=== PATIENT | female | born 1950 | race Caucasian/White ===

== ENCOUNTER 2016-12-02 23:39 | Emergency (ER) | payer BC ==
[2016-12-02 23:49] VITALS: BP 143/61
[2016-12-02] MEDS ORDERED: Diphtheria,Pertussis(Acell),Tetanus Vaccine 0.5 ML SDV IM ONE (23:54)
[2016-12-02] MEDS ORDERED: Clindamycin HCl 150 MG Cap PO ONE (23:54)
[2016-12-02] MEDS ORDERED: Silver Sulfadiazine 1% Crm 50 GM Tube TOP ONE (23:54)
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
== END 2016-12-03 00:12 | disposition home or self-care (01) ==
LOC: DL.ED 23:39
DX: T23.172A Burn of first degree of left wrist, initial encounter (principal); E78.00 Pure hypercholesterolemia, unspecified; Z87.891 Personal history of nicotine dependence; Z79.899 Other long term (current) drug therapy; Z23 Encounter for immunization; X15.3XXA Contact with hot saucepan or skillet, initial encounter
CPT/HCPCS: 16000; 90471; 90715; 99283; A9270

== ENCOUNTER 2024-11-24 07:21 | Day surgery (SDC) | payer MEDICARE, OTHER ==
[2024-11-24] MEDS: Lactated Ringers 1,000 ML IV SCH (07:53)
[2024-11-24] MEDS ORDERED: Propofol 200 MG/20 ML SDV ONE (10:18)
[2024-11-24 11:04] VITALS: BP 141/45; PULSE 66
== END 2024-11-24 11:06 | disposition home or self-care (01) ==
LOC: DL.ENDO 07:21
PROVIDERS: ATTEND Internal Medicine Gastroenterology
DX: Z12.11 Encounter for screening for malignant neoplasm of colon (principal); Z88.8 Allergy status to other drugs, medicaments and biological substances
CPT/HCPCS: G0121; J7120